=== PATIENT | male | born 1945 | race Caucasian/White ===

== ENCOUNTER 2024-03-23 13:52 | Outpatient (CLI) | payer OTHER, SELFPAY ==
[2024-03-23] MEDS: PERFLUTREN LIPID MICROSPHERES 2 ML VIAL IV (14:57)
--- NOTE | 2024-03-23 14:57 | PC.NURSE ---
22g PIV placed in right AC. 1.5ml of Definity administered. Patient tolerated well. PIV taken out and catheter intact.
== END 2024-03-23 13:53 | disposition home or self-care (01) ==
LOC: RAD 13:59
PROVIDERS: Visit Provider Chiropractor
DX: I25.10 Atherosclerotic heart disease of native coronary artery without angina pectoris (principal); I51.7 Cardiomegaly
CPT/HCPCS: 93306; Q9957